=== PATIENT | male | born 1985 | race American Indian/Alaskan Native ===

== ENCOUNTER 2019-05-07 03:52 | Emergency (ER) | payer SELFPAY ==
[2019-05-07 04:09] VITALS: BP 126/87
[2019-05-07] MEDS ORDERED: HYDROcodone/ACETAMINOPHEN 5-325 MG TAB PO ONE (09:11)
[2019-05-07] MEDS ORDERED: ONDANSETRON 4 MG ODT TAB PO ONE (09:18)
--- NOTE | 2019-05-07 09:59 | XRay Report ---
CHEST 2 VIEWS, 05/07/2019 9:11 AM INDICATION: Cough COMPARISON: None FINDINGS: Support devices: None Heart: Heart size and pulmonary vascularity appear within normal limits. Lungs/pleura: The lungs are well expanded and appear clear of focal airspace disease or significant p leural effusion. Additional findings: Evaluation of bony structures demonstrates no focal abnormality. IMPRESSION: 1. No evidence of acute cardiopulmonary process. Signer Name: Princess An MD Signed: 05/07/2019 9:55 AM Workstation Name: [email or web address]
[2019-05-07 10:16] LABS: Basophils # (Auto) 0.1 K/mm3 (0.0-0.1); Basophils % (Auto) 1.1 % (0.0-1.8); Eosinophils # (Auto) 0.1 K/mm3 (0.0-0.4); Eosinophils % (Auto) 0.9 % (0.0-4.3); Hematocrit 43.2 % (35.5-45.6); Hemoglobin 14.1 gm/dl (11.8-15.2); Lymphocytes # (Auto) 2.1 K/mm3 (1.2-5.4); Lymphocytes % (Auto) 27.2 % (13.4-35.0); Mean Corpuscular HGB Conc 33 % (32-34); Mean Corpuscular Volume 94 fl (84-94); Monocytes # (Auto) 0.6 K/mm3 (0.0-0.8); Monocytes % (Auto) 7.3 % (0.0-7.3); Platelet Count 190 K/mm3 (140-440); Red Blood Count 4.62 M/mm3 (3.65-5.03); Red Cell Distribution Width 13.4 % (13.2-15.2)
--- NOTE | 2019-05-07 10:17 | Emergency Department Report ---
ED General Adult HPI - General Chief complaint: Upper Respiratory Infection Stated complaint: COUGH/VOMITING/BERENICE/BOIL ON BUTTOCKS Time Seen by Provider: 05/07/19 08:57 Source: patient Mode of arrival: Ambulatory Limitations: No Limitations - History of Present Illness Initial comments: This is a 33-year-old male who is HIV positive. He states his significant other is admitted to this hospital with pneumonia. He is concerned because he is coughing occasional yellow sputum. He is not short of breath. He said no fever or chills. 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 He states he has a history of this prior. He states he is moved to this area and does not have an infectious disease clinic for the last 6 months. However, he states he is compliant with his HIV medications. He denies a history of life-threatening infection. She gives a history of ulcerative colitis and stage II chronic kidney disease. -: Gradual, days(s) Quality: aching Consistency: intermittent Improves with: none Worsens with: none Associated Symptoms: denies other symptoms - Related Data Previous Rx's Medication Instructions Recorded Last Taken Type Sulfamethoxazole/Trimethoprim 1 each PO BID #20 tablet 05/07/19 Unknown Rx [Bactrim 400-80 mg Tablet] traMADol [Ultram 50 MG tab] 50 mg PO Q6HR PRN #7 tablet 05/07/19 Unknown Rx Allergies Allergy/AdvReac Type Severity Reaction Status Date / Time atazanavir [From [facility]] Allergy Hives Verified 05/07/19 04:31 ED Review of Systems ROS: Stated complaint: COUGH/VOMITING/BERENICE/BOIL ON BUTTOCKS Other details as noted in HPI Constitutional: denies: chills, fever Eyes: denies: eye pain, eye discharge, vision change ENT: denies: ear pain, throat pain Respiratory: cough. denies: shortness of breath, wheezing Cardiovascular: denies: chest pain, palpitations Endocrine: no symptoms reported Gastrointestinal: denies: abdominal pain, nausea, diarrhea Genitourinary: as per HPI (anal pain). denies: urgency, dysuria Musculoskeletal: denies: back pain, joint swelling, arthralgia Skin: denies: rash, lesions Neurological: denies: headache, weakness, paresthesias Psychiatric: denies: anxiety, depression Hematological/Lymphatic: denies: easy bleeding, easy bruising ED Past Medical Hx - Past Medical History Previous Medical History?: Yes Hx Renal Disease: Yes (Stage 2 CKD) Hx HIV: Yes Additional medical history: Ulcerative Colitis - Surgical History Past Surgical History?: No - Social History Smoking Status: Never Smoker Substance Use Type: Marijuana - Medications Home Medications: Home Medications Medication Instructions Recorded Confirmed Last Taken Type Sulfamethoxazole/Trimethoprim 1 each PO BID #20 tablet 05/07/19 Unknown Rx [Bactrim 400-80 mg Tablet] traMADol [Ultram 50 MG tab] 50 mg PO Q6HR PRN #7 tablet 05/07/19 Unknown Rx ED Physical Exam - General Limitations: No Limitations General appearance: alert, in no apparent distress - Head Head exam: Present: atraumatic, normocephalic - Eye Eye exam: Present: normal appearance. Absent: scleral icterus - ENT ENT exam: Present: mucous membranes moist - Neck Neck exam: Present: normal inspection - Respiratory Respiratory exam: Present: normal lung sounds bilaterally. Absent: respiratory distress - Cardiovascular Cardiovascular Exam: Present: regular rate, normal rhythm. Absent: systolic mur mur, diastolic murmur, rubs, gallop - GI/Abdominal GI/Abdominal exam: Present: soft, normal bowel sounds. Absent: distended, tenderness, guarding, rebound, rigid - Rectal Rectal exam: Present: other (patient's anal area was inspected. There was no fluctuant mass. There was no discharge. Digital exam was deferred as the patient likely would not tolerate it secondary to pain) - Extremities Exam Extremities exam: Present: normal inspection - Back Exam Back exam: Present: normal inspection - Neurological Exam Neurological exam: Present: alert, oriented X3 - Psychiatric Psychiatric exam: Present: normal affect, normal mood - Skin Skin exam: Present: warm, dry, intact, normal color. Absent: rash ED Course Vital Signs 05/07/19 03:57 Temperature 98.4 F Pulse Rate 91 H Respiratory 18 Rate Blood Pressure 126/87 O2 Sat by Pulse 100 Oximetry ED Medical Decision Making - Lab Data Result diagrams: 05/07/19 09:34 05/07/19 09:34 Laboratory Results - last 24 hr 05/07/19 09:34 [place] % (Auto) 7.3 Eos % (Auto) 0.9 [place] # 0.6 Eos # 0.1 Baso # 0.1 Seg Neutrophils % 63.5 Seg Neutrophils # 4.8 Laboratory Results - last 24 hr 05/07/19 09:34 [place] % (Auto) 7.3 Eos % (Auto) 0.9 [place] # 0.6 Eos # 0.1 Baso # 0.1 Seg Neutrophils % 63.5 Seg Neutrophils # 4.8 Laboratory Results - last 24 hr 05/07/19 09:34 WBC 7.6 RBC 4.62 Hgb 14.1 Hct 43.2 MCV 94 MCH 30 MCHC 33 RDW 13.4 Plt Count 190 Lymph % (Auto) 27.2 [place] % (Auto) 7.3 Eos % (Auto) 0.9 Baso % (Auto) 1.1 Lymph # 2.1 [place] # 0.6 Eos # 0.1 Baso # 0.1 Seg Neutrophils % 63.5 Seg Neutrophils # 4.8 - Radiology Data Radiology results: report reviewed (chest x-ray no acute process) Critical care attestation.: If time is entered above; I have spent that time in minutes in the direct care of this critically ill patient, excluding procedure time. ED Disposition Clinical Impression: HIV positive, Anal pain Acute bronchitis Qualifiers: Bronchitis organism: unspecified organism Qualified Code(s): J20.9 - Acute bronchitis, unspecified Disposition: DC-01 TO HOME OR SELFCARE Is pt being admited?: No Does the pt Need Aspirin: No Condition: Stable Instructions: Acute Bronchitis (ED) Prescriptions: Sulfamethoxazole/Trimethoprim [Bactrim 400-80 mg Tablet] 1 each PO BID #20 tablet traMADol [Ultram 50 MG tab] 50 mg PO Q6HR PRN #7 tablet PRN Reason: Pain Referrals: [facility] [Provider Group] - 3-5 Days [facility] [Provider Group] - 3-5 Days Time of Disposition: 10:44
[2019-05-07 10:35] LABS: BUN/Creatinine Ratio 10; Blood Urea Nitrogen 11 mg/dL (9-20); Hemolysis Index 8
[2019-05-07] MEDS ORDERED: traMADol 50 MG TAB PO ONE (10:35)
== END 2019-05-07 11:02 | disposition home or self-care (01) ==
LOC: ED 03:52
DX: J20.9 Acute bronchitis, unspecified (principal); K62.89 Other specified diseases of anus and rectum; N18.2 Chronic kidney disease, stage 2 (mild); F12.10 Cannabis abuse, uncomplicated; Z21 Asymptomatic human immunodeficiency virus [HIV] infection status; Z79.899 Other long term (current) drug therapy; Z88.8 Allergy status to other drugs, medicaments and biological substances
CPT/HCPCS: 36415; 71046; 80048; 83735; 85025; 99284; Q0162